=== PATIENT | female | born 1985 | race Caucasian/White ===

== ENCOUNTER → 2023-07-09 07:48 | Outpatient (CLI) | payer SELFPAY ==
--- NOTE | ~2023-07-09 | US_ITS ---
Abdominal Sonogram: Real-time sonographic imaging of the abdomen was performed. Clinical History: Abdominal pain Findings: The liver appears normal with no evidence of mass lesion or bile duct dilatation. Main por juliana vein demonstrates normal direction of flow. The spleen is normal in size without evidence of foca l lesion. The gallbladder is well distended, and appears normal with no evidence of gallstone or wal l thickening. The common bile duct measures 3 mm. The visualized pancreas, aorta, and IVC are unrema rkable. The right kidney measures 10.4 cm in length and the left kidney measures 10.3 cm. There is no hydronephrosis or renal calculus. Impression: Unremarkable abdominal ultrasound. Reviewed, dictated and finalized at location . ENT REGISTRATION CLERK Impression: Unremarkable abdominal ultrasound.
== END ==
DX: R10.9 Unspecified abdominal pain (principal)
CPT/HCPCS: 76700

== ENCOUNTER 2023-08-07 12:58 | Outpatient (CLI) | payer SELFPAY ==
--- NOTE | ~2023-08-07 | US_ITS ---
EXAMINATION: US pelvic complete w TV DATE: 08/07/2023 13:31 INDICATION: Chronic pelvic pain. TECHNIQUE: Multiple transabdominal and transvaginal sonographic images of the pelvis were obtained. COMPARISON: CT abdomen and pelvis 08/07/23 FINDINGS: TRANSABDOMINAL ULTRASOUND: The uterus measures 9.1 x 5.2 x 3.9 cm. There is no free fluid in the pelvis. TRANSVAGINAL ULTRASOUND: The endometrial complex measures 10 mm in thickness. The right ovary measures 2.7 x 2.6 x 2.5 cm. The left ovary measures 1.5 x 2.1 x 2.3 cm. There is normal vascular flow in the ovaries. IMPRESSION: 1. Normal pelvis. Reviewed, dictated and finalized at location A. IMPRESSION: 1. Normal pelvis.
--- NOTE | ~2023-08-07 | CT_ITS ---
CT of the Abdomen and Pelvis: Indication: Pelvic pain Technique: 2.5 mm axial scans were obtained through the abdomen and pelvis following intravenous adm inistration of 100 cc of Omnipaque 350. Dose reduction technique was used on this scan by utilizing a utomated exposure control and iterative reconstruction technique. The dose-length product (DLP) was 3 79.21 mGy-cm. Findings: Scans through the lung bases are unremarkable. The liver, spleen, pancreas, gallbladder, adrenals and kidneys are within normal limits. No evidence of aortic aneurysm. No lymphadenopathy. No bowel obstruction or bowel wall thickening. There is no evidence to suggest acute appendicitis. Images through the pelvis were performed. Urinary bladder unremarkable. No adnexal mass seen. No asci landen. Impression: No significant abnormalities seen. Reviewed, dictated and finalized at [facility]. Impression: No significant abnormalities seen.
== END 2023-08-07 12:59 ==
DX: R93.89 Abnormal findings on diagnostic imaging of other specified body structures (principal)
CPT/HCPCS: 74177; 76830; 76856; Q9967

== ENCOUNTER 2023-10-01 08:23 | Outpatient (CLI) | payer SELFPAY ==
--- NOTE | ~2023-10-01 | XR_ITS ---
EXAMINATION: XR lumbar spine min 4V DATE: 10/01/2023 08:57 INDICATION: Unresolved back pain. TECHNIQUE: 5 views of lumbar spine were obtained. COMPARISON: None. FINDINGS: Bone alignment is normal. Vertebral body heights are normal. Intervertebral disc heights ar e normal. There is multilevel mild to moderate facet joint osteoarthritis, worst at L4-L5 on the left . IMPRESSION: 1. Lumbar facet joint osteoarthritis. Reviewed, dictated and finalized at location A.
== END 2023-10-01 08:24 ==
PROVIDERS: Visit Provider Chiropractor
DX: M47.896 Other spondylosis, lumbar region (principal)
CPT/HCPCS: 72110